=== PATIENT | female | born 1990 | race Caucasian/White ===

== ENCOUNTER 2021-06-10 08:04 | Outpatient (CLI) | payer OTHER | END 2021-06-10 08:11 | disposition home or self-care (01) | LOC: SONOGRAMA 08:04 | PROVIDERS: ATTEND Obstetrics & Gynecology | DX: R10.84 Generalized abdominal pain (principal); R10.2 Pelvic and perineal pain; N91.1 Secondary amenorrhea ==

== ENCOUNTER 2021-09-03 08:14 | Outpatient (CLI) | payer OTHER | END 2021-09-03 08:17 | disposition home or self-care (01) | LOC: NUCLEAR 08:14 | PROVIDERS: ATTEND Thoracic Surgery (Cardiothoracic Vascular Surgery) | DX: I73.9 Peripheral vascular disease, unspecified (principal) ==

== ENCOUNTER 2022-08-06 09:24 | Outpatient (CLI) | payer OTHER | END 2022-08-06 09:30 | disposition home or self-care (01) | LOC: RAD 09:24 | PROVIDERS: ATTEND Specialist | DX: R07.89 Other chest pain (principal); R05.8 Other specified cough ==

== ENCOUNTER 2023-06-02 07:32 | Outpatient (CLI) | payer OTHER | END 2023-06-02 07:46 | disposition home or self-care (01) | LOC: TOM 07:32 | PROVIDERS: ATTEND Urology | DX: R31.21 Asymptomatic microscopic hematuria (principal) ==

== ENCOUNTER 2023-07-23 09:37 | Outpatient (CLI) | payer OTHER | END 2023-07-23 09:52 | disposition home or self-care (01) | LOC: SONOGRAMA 09:37 | PROVIDERS: ATTEND Obstetrics & Gynecology | DX: N60.11 Diffuse cystic mastopathy of right breast (principal) ==

== ENCOUNTER 2024-01-19 13:13 | Outpatient (CLI) | payer OTHER | END 2024-01-19 13:15 | disposition home or self-care (01) | LOC: SONOGRAMA 13:13 | PROVIDERS: ATTEND Obstetrics & Gynecology | DX: N60.11 Diffuse cystic mastopathy of right breast (principal) ==

== ENCOUNTER 2024-07-21 15:17 | Inpatient (IN) | payer OTHER ==
[~2024-07-21] VITALS: Ht 160 cm; Wt 3.2 kg
[2024-08-02 16:20] VITALS: BP 129/70
[2024-08-02 16:58] LABS: HEMATOCRIT 35.7 % (36.0-45.00); HEMOGLOBIN 12.3 g/dL (12.0-15.00); MEAN CELL VOLUME 95.4 fL (80.00-100.00); MEAN CORPUSCULAR HEMOGLOBIN 32.8 pg (27.00-32.0); MEAN CORPUSCULAR HGB CONC 34.3 g/dl (32.0-36.0); PLATELET COUNT 170 K/uL (150-450); RED BLOOD COUNT 3.74 M/uL (4.00-6.00); RED CELL DISTRIBUTION WIDTH 13.8 % (11.5-14.5)
[2024-08-02] MEDS ORDERED: MISOPROSTOL 25 MCG TABLET ONE (16:58)
[2024-08-02] MEDS ORDERED: MISOPROSTOL 25 MCG TABLET VAG ONE (17:00)
[2024-08-02] MEDS ORDERED: PRENATABS RX T1 EACH PO (17:04)
[2024-08-02 17:23] LABS: INR 0.96; PARTIAL THROMBOPLASTIN TIME 24.4 SECONDS (22.0-34.0); PROTHROMBIN TIME 10.5 SECONDS (9.0-11.5)
[2024-08-02 17:28] LABS: ALBUMIN 3.5 gm/dL (3.4-5.0); BILIRUBIN TOTAL 0.48 mg/dL (0.3-1.2); CALCIUM 9.6 mg/dL (8.5-10.1); CREATININE SERUM 0.6 mg/dL (0.55-1.02); GFR 113.76; GLOBULINA 3.4 G/DL (2.4-3.5); POTASSIUM 3.75 mEq/L (3.5-5.1); TOTAL PROTEIN 6.9 gm/dL (6.4-8.2)
[2024-08-02 17:44] LABS: URINE APPEARANCE Clear; URINE BILIRRUBIN Negative (NEGATIVE); URINE BLOOD Negative; URINE COLOR Yellow; URINE GLUCOSE Negative (NEGATIVE); URINE KETONE Negative (NEGATIVE); URINE LEUKOCYTE Negative; URINE NITRATE Negative; URINE PROTEIN Negative (NEGATIVE); URINE UROBILINOGEN 0.2 E.U./dl
[2024-08-02 17:48] LABS: URINE BACTERIA 1798.9 uL (0.0-1933); URINE EPITHELIAL CELLS 7.4 uL (0.0-38.8); URINE WBC 19.3 uL (0.0-23.2)
[2024-08-02 17:50] LABS: URINE CAST 0.29 uL (0.0-1.40)
[2024-08-02 19:06] VITALS: BP 119/67
[2024-08-02] MEDS ORDERED: MORPHINE SULFATE 4 MG/ML CARTRIDGE IV PRN (20:00)
[2024-08-02 23:33] VITALS: BP 123/72
[2024-08-03 03:52] VITALS: BP 121/74
[2024-08-03 07:39] VITALS: BP 118/77
[2024-08-03] MEDS ORDERED: OXYTOCIN 500 ML IV ONE (07:45)
[2024-08-03] MEDS ORDERED: OXYTOCIN 20 UNITS/500ML RL PIGGYBAG IV ONE (08:00)
[2024-08-03 12:17] VITALS: BP 131/73
[2024-08-03] MEDS ORDERED: MORPHINE SULFATE 4 MG/ML CARTRIDGE IV PRN ×2 (14:00→17:15)
[2024-08-03] MEDS ORDERED: OXYTOCIN 1,000 ML IV ONE (14:15)
[2024-08-03] MEDS ORDERED: RINGERS SOLUTION,LACTATED 1,000 ML IV SCH (14:15)
[2024-08-03] MEDS ORDERED: ERYTHROMYCIN BASE OPHT 1GM EACH TUBE OP ONE (15:39)
[2024-08-03] MEDS ORDERED: OXYTOCIN 10 UNITS/ML VIAL ONE (16:12)
[2024-08-03] MEDS ORDERED: FAMOTIDINE/PF 20 MG/2 ML VIAL ONE (16:32)
[2024-08-03] MEDS ORDERED: SIMETHICONE 125 MG CAPSULE PO SCH (17:00)
[2024-08-03] MEDS ORDERED: GABAPENTIN 300 MG CAPSULE PO SCH (17:00)
[2024-08-03] MEDS ORDERED: OXYTOCIN 1,000 ML IV SCH (17:15)
[2024-08-03] MEDS ORDERED: KETOROLAC TROMETHAMINE 30 MG VIAL IV SCH (18:00)
[2024-08-03] MEDS ORDERED: ACETAMINOPHEN 500 MG GEL..CAP PO SCH (18:00)
[2024-08-03] MEDS ORDERED: ONDANSETRON HCL 2 MG/ML VIAL IV SCH (18:00)
[2024-08-03] MEDS ORDERED: KETOROLAC TROMETHAMINE 30 MG VIAL ONE (19:07)
[2024-08-03] MEDS ORDERED: MORPHINE SULFATE 4 MG/ML VIAL IV ONE (19:10)
[2024-08-03 21:02] VITALS: BP 123/72
[2024-08-04] VITALS: BP 115/72
[2024-08-04 04:00] VITALS: BP 99/67
[2024-08-04 07:04] LABS: HEMATOCRIT 26.9 % (36.0-45.00); MEAN CELL VOLUME 94.8 fL (80.00-100.00); MEAN CORPUSCULAR HGB CONC 34.8 g/dl (32.0-36.0); PLATELET COUNT 132 K/uL (150-450); RED BLOOD COUNT 2.83 M/uL (4.00-6.00); RED CELL DISTRIBUTION WIDTH 13.7 % (11.5-14.5)
[2024-08-04 08:00] VITALS: BP 106/70
[2024-08-04] MEDS ORDERED: KETOROLAC TROMETHAMINE 10 MG TABLET PO SCH (08:00)
[2024-08-04 08:05] LABS: HEMOGLOBIN 9.3 g/dL (12.0-15.00); MEAN CORPUSCULAR HEMOGLOBIN 32.8 pg (27.00-32.0)
[2024-08-04] MEDS ORDERED: IBUprofen 400 MG TABLET PO SCH (09:00)
[2024-08-04] MEDS ORDERED: DOCUSATE SODIUM 100MG CAP PO SCH (09:00)
[2024-08-04 16:00] VITALS: BP 96/62
[2024-08-05 01:36] VITALS: BP 106/70
[2024-08-05] MEDS ORDERED: OxyCODONE HCL 5 MG TABLET (ROXICODONE) PO PRN (06:00)
[2024-08-05 08:00] VITALS: BP 107/62
[2024-08-05] MEDS ORDERED: IBUprofen 400 MG TABLET PO SCH (09:00)
[2024-08-05 16:55] VITALS: BP 109/72
[2024-08-06 00:09] VITALS: BP 102/65
[2024-08-06] MEDS ORDERED: FF) RHO(D) IMMUNE GLOBULIN (POM) IM ONE (07:00)
[2024-08-06 09:03] VITALS: BP 100/66
== END 2024-08-06 12:20 | disposition home or self-care (01) | DRG 788 ==
LOC: OB/GYN 07-25 14:45 → LDR 08-02 14:53 → OB/GYN 08-02 14:53 → LDR 08-03 11:08 → OB/GYN 08-03 16:56
PROVIDERS: Obstetrics & Gynecology; ADMIT Obstetrics & Gynecology; ATTEND Obstetrics & Gynecology
PROC: 3E0P7VZ Introduction of Hormone into Female Reproductive, Via Natural or Artificial Opening (ICD-10-PCS; 2024-08-02)
PROC: 4A1HXCZ Monitoring of Products of Conception, Cardiac Rate, External Approach (ICD-10-PCS; 2024-08-02)
PROC: 3E033VJ Introduction of Other Hormone into Peripheral Vein, Percutaneous Approach (ICD-10-PCS; 2024-08-03)
PROC: 10D00Z1 Extraction of Products of Conception, Low, Open Approach (ICD-10-PCS; principal; 2024-08-03 19:45)
DX: O33.8 Maternal care for disproportion of other origin (principal); Z3A.40 40 weeks gestation of pregnancy; Z37.0 Single live birth

== ENCOUNTER 2024-07-26 10:56 | Outpatient (CLI) | payer OTHER | END 2024-07-26 12:23 | disposition home or self-care (01) | LOC: NST 10:56 | PROVIDERS: ATTEND Obstetrics & Gynecology Gynecology | DX: Z34.83 Encounter for supervision of other normal pregnancy, third trimester (principal) ==

== ENCOUNTER 2025-04-28 12:03 | Outpatient (CLI) | payer OTHER ==
[~2025-04-28 12:03] MED LIST: PRENATABS RX T1 EACH PO
== END 2025-04-28 12:20 | disposition home or self-care (01) ==
LOC: SONOGRAMA 12:03
PROVIDERS: ATTEND Obstetrics & Gynecology
DX: N60.11 Diffuse cystic mastopathy of right breast (principal); M15.0 Primary generalized (osteo)arthritis